=== PATIENT | female | born 1990 | race African-American/Black ===

== ENCOUNTER 2019-12-15 13:37 | Emergency (ER) | payer SELFPAY ==
[~2019-12-15] VITALS: Ht 172.7 cm; Wt 86.2 kg
[~2019-12-15 13:37] MED LIST: GABA100; LAMO25
[2019-12-15] MEDS ORDERED: LAMICTAL XR200 MG PO (14:43)
[2019-12-15] MEDS ORDERED: HYDHCL25 PO (14:43)
== END 2019-12-15 15:32 | disposition home or self-care (01) ==
LOC: ER 13:37
DX: F41.9 Anxiety disorder, unspecified (principal); F31.9 Bipolar disorder, unspecified; Z87.891 Personal history of nicotine dependence
CPT/HCPCS: 99282

== ENCOUNTER 2021-01-16 07:41 | Day surgery (SDC) | payer OTHER ==
[~2021-01-16] VITALS: Ht 175.3 cm; Wt 112.7 kg
[~2021-01-16 07:41] MED LIST changes: +HYDHCL25 PO; +LAMICTAL XR200 MG PO
[2021-01-16] MEDS ORDERED: 1/2 NS 250ml250 ML (08:33)
[2021-01-16] MEDS ORDERED: TRAZ50 (08:33)
--- NOTE | 2021-01-16 10:56 | NUR ---
01/16/21 1056 ASHISH FISH PT TONGUE RING AND NIPPLE RINGS RETURNED TO PT. SHE INSERTED BACK IN IN SDU SHE WAS WORRIED THAT THEY WOULD CLOSE.
== END 2021-01-16 10:40 | disposition home or self-care (01) ==
LOC: ORSCSDS 07:41
PROVIDERS: Obstetrics & Gynecology
PROC: 0UBC7ZX Excision of Cervix, Via Natural or Artificial Opening, Diagnostic (ICD-10-PCS; principal; 2021-01-16 09:00)
DX: D06.0 Carcinoma in situ of endocervix (principal); I10 Essential (primary) hypertension; F17.210 Nicotine dependence, cigarettes, uncomplicated; K21.9 Gastro-esophageal reflux disease without esophagitis; E66.01 Morbid (severe) obesity due to excess calories; Z68.36 Body mass index [BMI] 36.0-36.9, adult; Z79.899 Other long term (current) drug therapy
CPT/HCPCS: 88305; J0171; J1100; J1885; J2405; J2704; J3010